=== PATIENT | male | born 1995 | race Caucasian/White ===

== ENCOUNTER 2018-05-04 14:39 | Emergency (ER) | payer SELFPAY ==
[~2018-05-04] VITALS: Ht 188 cm; Wt 63.6 kg
[2018-05-04] MEDS: ONDANSETRON HCL 4 MG TABLET PO ONE (17:47)
[2018-05-04] MEDS: OxyCODONE HCL/ACETAMINOPHEN 5-325 MG TABLET PO ONE (17:47)
[2018-05-04 18:36] VITALS: BP 130/72
== END 2018-05-04 19:06 | disposition short-term general hospital (02) ==
LOC: EMS 14:40
DX: S02.40CA Maxillary fracture, right side, initial encounter for closed fracture (principal); S02.81XA Fracture of other specified skull and facial bones, right side, initial encounter for closed fracture; F17.210 Nicotine dependence, cigarettes, uncomplicated; F12.90 Cannabis use, unspecified, uncomplicated; Y04.0XXA Assault by unarmed brawl or fight, initial encounter; Y93.89 Activity, other specified; Y92.89 Other specified places as the place of occurrence of the external cause; Y99.8 Other external cause status
CPT/HCPCS: 70450; 70486; 99285; Q0162